=== PATIENT | female | born 1970 | race Caucasian/White ===

== ENCOUNTER 2024-04-14 21:45 | Observation (INO) | payer OTHER ==
[~2024-04-14] VITALS: Ht 162.6 cm; Wt 57.6 kg
[~2024-04-14 21:45] MED LIST changes: -ACETAMINOPHEN 1000 MG/100 ML 100 ML IV ONE; -BUPIVACAINE 0.5%/EPI 30 ML SDV INJ ONE; -DEXAMETHASONE SOD PHOS INJ 4 MG/ML SDV ONE; -FAMOTIDINE 20 MG/2 ML VIAL IV ONE; -FENTANYL CITRATE/PF 100MCG/2 ML INJ ONE; -GLYCOPYRROLATE INJ 0.2 MG/ML VIAL ONE; -LIDOCAINE HCL 2% LOCAL INJ 5 ML SDV VIAL INJ ONE; -METOCLOPRAMIDE HCL 10 MG/2ML VIAL ONE; -MIDAZOLAM HCL 2 MG/2 ML VIAL ONE; -NEOSTIGMINE 1 MG/ML 10ML VIAL ONE; -ONDANSETRON HCL INJ 2MG/ML 2ML 2 MG/ML VIAL ONE; -ONDANSETRON ODT4 MG PO; -OXYMETAZOLINE HCL 0.05% NAS 1 SPRAY BTL ONE; -PROPOFOL IV EMULSION 10 MG/ML 20 ML VIAL ONE; -ROCURONIUM BROMIDE 1 ML IV ONE; -SUCCINYLCHOLINE CHLORIDE 20 MG/ML 10ML VIAL ONE
[2024-04-14] MEDS ORDERED: SODIUM CHLORIDE 0.9% 1000ML 1,000 ML IV STA (21:51)
[2024-04-14 21:56] VITALS: PULSE 99; RESP 20; TEMP 98.3
[2024-04-14] MEDS ORDERED: ONDANSETRON HCL INJ 2MG/ML 2ML 2 MG/ML VIAL IV PRN (22:00)
[2024-04-14 22:43] LABS: INR 0.92; PROTHROMBIN TIME 12.9 seconds (11.9-14.5)
[2024-04-15] MEDS: MEPERIDINE HCL INJ 25 MG/ML VIAL ONE (00:38)
[2024-04-15 01:45] VITALS: BP 134/85; PULSE 88; RESP 16; TEMP 97.9; O2SAT 99
[2024-04-15 01:55] VITALS: BP 139/89; PULSE 89; RESP 17; TEMP 98.4; O2SAT 100
[2024-04-15] MEDS: Morphine 4mg INJECTION 4 MG/ML INJ IV PRN (02:25)
[2024-04-15 05:19] VITALS: BP 132/66; PULSE 82; RESP 17; TEMP 98.1; O2SAT 100
[2024-04-15 07:01] LABS: BASOPHILS % 0.1 % (0.0-1.0); HEMATOCRIT 33.7 % (34.2-44.1); HEMOGLOBIN 10.8 g/dL (12.0-16.0); LYMPHOCYTES % 7.7 % (18.0-39.1); MEAN CORPUSCULAR HEMOGLOBIN 29.9 pg (28-32); MEAN CORPUSCULAR VOLUME 93.4 fL (81-99); MONOCYTES # (AUTO) 0.6 (0.2-0.8); NEUTROPHILS # (AUTO) 10.9 (2.1-6.9); NEUTROPHILS % 86.8 % (38.7-80.0); PLATELET COUNT 181 x10e3/uL (140-360); RED BLOOD COUNT 3.61 x10e6/uL (3.6-5.1); RED CELL DISTRIBUTION WIDTH 16.4 % (11.7-14.4); WHITE BLOOD COUNT 12.52 x10e3/uL (4.8-10.8)
[2024-04-15 07:23] LABS: ALBUMIN 3.5 g/dL (3.5-5.0); ALBUMIN/GLOBULIN RATIO 1.6 (0.8-2.0); ANION GAP 11.8 mmol/L (8-16); BILIRUBIN,TOTAL 0.4 mg/dL (0.2-1.2); CALCIUM 8.4 mg/dL (8.4-10.2); CREATININE, SERUM 0.67 mg/dL (0.57-1.11); POTASSIUM 3.8 mmol/L (3.5-5.1); TOTAL PROTEIN 5.7 g/dL (6.5-8.1)
[2024-04-15 08:00] VITALS: BP_SYST 130; BP_SYST 138; BP_DIAS 74; PULSE 71; RESP 18; TEMP 98; TEMP 98.7; O2SAT 98
[2024-04-15 12:00] VITALS: BP 116/68; PULSE 63; RESP 18; TEMP 98.4; O2SAT 98
[2024-04-15] MEDS ORDERED: ONDANSETRON ODT4 MG PO (15:02)
[2024-04-15 16:00] VITALS: BP 137/78; PULSE 65; RESP 19; TEMP 98.6; O2SAT 100
[2024-04-15] MEDS ORDERED: IPRATROPIUM BROMIDE 0.02% 2.5 ML NEB INH SCH (19:00)
[2024-04-16] MEDS ORDERED: THYROID 60 MG TAB PO SCH (06:00)
[2024-04-16] MEDS ORDERED: PROGESTERONE MICRONIZED PO SCH (09:00)
[2024-04-16] MEDS ORDERED: PS CMP PO SCH (09:00)
[2024-04-16] MEDS ORDERED: TIZANIDINE HCL 4 MG TAB PO SCH (09:00)
[2024-04-16] MEDS ORDERED: LACTOBACILLUS ACIDOPHILUS CAPSULE PO SCH (09:00)
[2024-04-16] MEDS ORDERED: IRON FUM PO SCH (09:00)
[2024-04-16] MEDS ORDERED: [UNRECOGNIZED DRUG - OTHER] PO SCH (09:00)
[2024-04-16] MEDS ORDERED: MELOXICAM 7.5 MG TAB PO SCH (09:00)
[2024-04-16] MEDS ORDERED: VIT C PO SCH (09:00)
== END 2024-04-15 16:10 | disposition home or self-care (01) ==
LOC: ER 21:50 → ERHOLD 21:58 → MED/SURG3 04-15 01:17
PROVIDERS: ADMIT Internal Medicine; ATTEND Internal Medicine
DX: J95.830 Postprocedural hemorrhage of a respiratory system organ or structure following a respiratory system procedure (principal); D50.9 Iron deficiency anemia, unspecified; E03.9 Hypothyroidism, unspecified; E87.1 Hypo-osmolality and hyponatremia; R73.9 Hyperglycemia, unspecified
CPT/HCPCS: 36415 ×2; 42962; 80053; 85025; 85610; 99284; G0378 ×2; J2175; J2270

== ENCOUNTER → 2024-04-14 | Day surgery (SDC) | payer OTHER ==
[~2024-04-14] MED LIST: ACETAMINOPHEN 1000 MG/100 ML 100 ML IV ONE; ARMOUR THYROID60 MG PO; ATROVENT HFA12.9 GM INH; BUPIVACAINE 0.5%/EPI 30 ML SDV INJ ONE; DEXAMETHASONE SOD PHOS INJ 4 MG/ML SDV ONE; FAMOTIDINE 20 MG/2 ML VIAL IV ONE; FENTANYL CITRATE/PF 100MCG/2 ML INJ ONE; GLYCOPYRROLATE INJ 0.2 MG/ML VIAL ONE; HAIR VITAMIN1 EACH; INTEGRA CAPSUL1 EACH PO; LIDOCAINE HCL 2% LOCAL INJ 5 ML SDV VIAL INJ ONE; MELOXICAM7.5 MG PO; METOCLOPRAMIDE HCL 10 MG/2ML VIAL ONE; MIDAZOLAM HCL 2 MG/2 ML VIAL ONE; NEOSTIGMINE 1 MG/ML 10ML VIAL ONE; ONDANSETRON HCL INJ 2MG/ML 2ML 2 MG/ML VIAL ONE; ONDANSETRON ODT4 MG PO; OSTEO BI-FLEX1 EAC4; OXYMETAZOLINE HCL 0.05% NAS 1 SPRAY BTL ONE; PROBIOTIC PO; PROGESTERONE200 MG PO; PROPOFOL IV EMULSION 10 MG/ML 20 ML VIAL ONE; ROCURONIUM BROMIDE 1 ML IV ONE; SUCCINYLCHOLINE CHLORIDE 20 MG/ML 10ML VIAL ONE; TIZANIDINE HCL4 MG PO
[2024-04-14] MEDS: LACTATED RINGER'S 1,000 ML ONE (10:37)
[2024-04-14 15:15] VITALS: BP 147/81; PULSE 61; RESP 16; O2SAT 98
== END | disposition home or self-care (01) ==
LOC: OR 10:19
PROVIDERS: ATTEND Otolaryngology Otolaryngology/Facial Plastic Surgery
DX: J03.91 Acute recurrent tonsillitis, unspecified (principal); D64.9 Anemia, unspecified; R01.1 Cardiac murmur, unspecified; E03.9 Hypothyroidism, unspecified; Z79.1 Long term (current) use of non-steroidal anti-inflammatories (NSAID); Z79.899 Other long term (current) drug therapy
CPT/HCPCS: 81025; 88304; 93005; J0330; J1100; J2003; J2250; J2405; J2710; J2765